=== PATIENT | female | born 1955 | race Caucasian/White ===

== ENCOUNTER 2017-05-08 12:32 | Outpatient (CLI) | payer BC, OTHER ==
--- OUTSIDE RECORDS SUMMARY | 2017-05-08 13:16 | XMS | Clinical Summary ---
:1955 Author Organization [facility] Address [address] [place] [address] Phone Care Team Providers Name Role Phone , Primary Care Provider Unavailable Allergies Active Allergy Reactions Severity Noted Date Comments Codeine \\ Current Medications Prescription Sig. Disp. Refills Start Date End Date Status cholecalciferol, Take 50,000 Units by Active vitamin D3, 50,000 unit mouth once a week. Tab fluoruracil (CARAC) 0.5 Apply 1 application Active % cream topically daily. Active Problems Problem Noted Date Insomnia 04/22/2012 Resolved Problems Problem Noted Date Resolved Date Sprain of ulnar collateral ligament of elbow 05/13/2012 11/25/2012 Overview: Dr Riley did injection ICD9 DX Pathology Specialist Pure hypercholesterolemia 07/28/2011 11/25/2012 Overview: Converted from [facility] Immunizations Name Dates Previously Given Next Due Tdap 06/20/2014 Family History Medical History Relation Name Comments Mitral valve prolapse Brother Cancer Father prostate cancer Coronary artery disease Father Relation Name Status Comments Brother Father Social History Tobacco Use Types Packs/Day Years Used Date Never Smoker Alcohol Use Drinks/Week oz/Week Comments No Sex Assigned at Date Recorded Not on file Last Filed Vital Signs Vital Sign Reading Time Taken Blood Pressure 120/80 07/21/2015 7:02 PM [employer] [facility] Pulse 86 07/21/2015 1:44 PM [employer] Temperature - - Respiratory Rate 16 11/25/2012 1:49 PM CDT Oxygen Saturation 100% 07/21/2015 1:44 PM [employer] Inhaled Oxygen Concentration - - Weight 67.6 kg (149 lb) 07/21/2015 1:44 PM [employer] Height 168.9 cm (5' 6.5") 07/21/2015 1:44 PM [employer] Body Mass Index 23.69 07/21/2015 1:44 PM [employer] Plan of Treatment Health Maintenance Due Date Last Done Comments INFLUENZA VACCINE 04/08/2017 Results Not on filefrom Last 3 Months
--- NOTE | 2017-05-08 16:21 | MRI ---
LEFT KNEE MRI WITHOUT IV CONTRAST: 05/08/17 HISTORY: 61-year-old female with left knee pain with concern for peripheral tear of the medial meniscus of th e left knee as current injury, subsequent encounter. Multiplanar and multisequence MRI examination of the left knee is performed. There is some full thic kness cartilage loss involving the central and superior aspect of the patella with some subchondral cystic changes involving the superior patella, evidence for significant chondromalacia patella. Ther e is some joint effusion with some fluid in the suprapatellar recess. There is also articular cartil age loss involving the medial and lateral compartments. There is some minimal blunting and free edge irregularity of the posterior root and posterior horn of the medial meniscus having more the appear ance of some degenerative fraying rather than an acute free edge tear. The anterior and posterior cr uciate ligaments and collateral ligament complexes and quadriceps and patellar tendons are intact. N o acute osteochondral defect or abnormal marrow signal. IMPRESSION: Prominent chondromalacia patella particularly involving the mid and superior aspect of the patella w ith some subchondral cystic changes superiorly. Irregular cartilage loss as well involving both medi al and lateral compartments. Minimal free edge irregularity and blunting of the posterior horn of th e medial meniscus having more the appearance of degenerative fraying rather than acute tear. No evid ence for other significant acute internal derangement. POS: DAVON
== END 2017-05-08 12:33 | disposition home or self-care (01) ==
LOC: SCSMRI 12:32
DX: S83.222D Peripheral tear of medial meniscus, current injury, left knee, subsequent encounter (principal); M25.562 Pain in left knee; M22.42 Chondromalacia patellae, left knee

== ENCOUNTER 2018-01-15 15:08 | Outpatient (CLI) | payer BC, OTHER ==
[~2018-01-15 15:08] MED LIST: Iopamidol 370 76% 100 ML VIAL ONE
== END 2018-01-15 15:09 | disposition home or self-care (01) ==
LOC: BICCT 15:08
PROVIDERS: ATTEND Ophthalmology Uveitis and Ocular Inflammatory Disease
DX: H05.122 Orbital myositis, left orbit (principal)
CPT/HCPCS: 70482; 82565